=== PATIENT | female | born 1970 | race Caucasian/White ===

== ENCOUNTER 2018-04-20 14:48 | Observation (INO) ==
--- NOTE | 2018-04-20 15:00 | Emergency Department Note ---
Disposition Clinical Impression: Abdominal pain Qualifiers: Abdominal location: epigastric Qualified Code(s): R10.13 - Epigastric pain Acute pancreatitis Qualifiers: Pancreatitis type: unspecified pancreatitis type Acute pancreatitis complication: unspecified Qualified Code(s): K85.90 - Acute pancreatitis without necrosis or infection, unspecified Disposition: Admitted As Inpatient Condition: Good Referrals: Cristal Gomez CNP [Primary Care Provider] - Time of Disposition: 18:51 Abdominal Pain HPI - General Stated Complaint: Stomach/Back Pain Time Seen by Provider: 04/20/18 15:00 Source: patient Mode of arrival: EMS Limitations: no limitations Nursing Notes Reviewed: Yes Vital Signs Reviewed: Yes - History of Present Illness HPI Narrative: 47-year-old obese white female presents emergency department via private vehicle complaining of epigastric abdominal pain. She apparently has a history of H. pylori. She says that she had this one year ago. She was seen earlier this morning at a local urgent care. She apparently had a urinalysis and was started on omeprazole and 3 antibiotics for her potential H. pylori. She says that she went home and took the medicine and her pain increased. She says that her pain initially started 2 days ago, but got worse this morning. She describes it as a burning pain in her epigastrium that radiates to her left upper quadrant. She apparently has vomited as well. Last time she ate was last night and she ate a steak and potatoes. She is uncomfortable presently. - Related Data Home Medications Medication Instructions Recorded Confirmed Amoxicillin 500 mg PO BID 04/20/18 04/20/18 Clarithromycin [Clarithromycin ER] 500 mg PO DAILY 04/20/18 04/20/18 Omeprazole [PriLOSEC] 20 mg PO DAILY 04/20/18 04/20/18 metroNIDAZOLE [Flagyl] 500 mg PO TID 04/20/18 04/20/18 Allergies Allergy/AdvReac Type Severity Reaction Status Date / Time No Known Allergies Allergy Verified 04/20/18 15:03 All systems ED: reviewed and negative except as stated. Constitutional: Denies: fever, chills, weakness, weight change Eyes: Denies: eye pain, eye discharge, vision change ENT ED: Denies: ear pain, throat pain, dental pain, hearing loss, epistaxis, congestion, dysphagia Cardiovascular: Denies: chest pain, palpitations, dyspnea on exertion, edema, syncope Respiratory: Denies: cough, dyspnea, wheezes, hemoptysis, stridor Gastrointestinal: Reports: as per HPI, abdominal pain, nausea, vomiting Genitourinary: Denies: dysuria, frequency, hematuria, discharge Musculoskeletal: Denies: back pain, neck pain, arthralgia, myalgia Integumentary: Denies: rash, abrasion, lesions Neurological: Denies: headache, weakness, numbness, paresthesias, confusion, abnormal gait, vertigo Psychiatric: Denies: anxiety, depression, suicidal thoughts, homicidal thoughts, auditory hallucinations, visual hallucinations Endocrine: Denies: fatigue Hematological/Lymphatic: Denies: easy bleeding, easy bruising Allergic/Immunologic: Denies: facial swelling, urticaria Abdominal Pain PMH - Past Medical History Medical history: Reports: GERD Female Surgical History: Reports: appendectomy, other LAST TRIMMER history: Reports: no LAST TRIMMER history Psychiatric history: Reports: anxiety - Social History Smoking status: Former smoker Alcohol use: Reports: none Drug use: Reports: none Physical Exam - General Limitations: no limitations General appearance: alert, in no apparent distress, obese - Head Head exam: atraumatic, normocephalic, normal inspection - Eye Eye exam: Present: normal appearance - ENT ENT exam: normal exam, normal oropharynx, mucous membranes moist - Neck Neck exam: Present: normal inspection, full ROM, trachea midline - Chest Chest inspection: Present: normal inspection, symmetric chest wall rise - Respiratory Respiratory exam: Present: normal lung sounds bilaterally - Cardiovascular Cardiovascular exam: Present: regular rate, normal rhythm, normal heart sounds - Abdominal Exam Abdominal exam: Present: soft, tenderness, normal bowel sounds. Absent: distention, guarding, rebound, rigidity, organomegaly, mass, pulsatile mass Abdominal tenderness: Present: RUQ, LUQ, epigastrium - Extremities Exam Extremities exam: Present: normal inspection, full ROM. Absent: tenderness, pedal edema - Back Exam Back exam: Present: normal inspection, full ROM. Absent: tenderness, CVA tenderness (R), CVA tenderness (L) - Neurological Exam Neurological exam: Present: alert, oriented X3 - Psychiatric Psychiatric exam: Present: normal affect, normal mood - Skin Skin exam: Present: warm, dry, intact, normal color Course Course Narrative: The patient continued to be uncomfortable throughout her emergency department stay and required additional medicines for nausea and pain. Spoke with Dr. Keen at 1849 and the patient will be observed here in [facility]. Vital Signs Temperature 97.9 F 04/20/18 14:57 Pulse Rate 118 04/20/18 14:57 Respiratory Rate 20 04/20/18 14:57 Blood Pressure 120/83 04/20/18 14:57 O2 Sat by Pulse Oximetry 100 04/20/18 14:57 Temperature 97.9 F 04/20/18 14:57 Pulse Rate 98 04/20/18 17:00 Respiratory Rate 20 04/20/18 17:00 Blood Pressure 119/70 04/20/18 17:00 O2 Sat by Pulse Oximetry 99 04/20/18 17:00 Oxygen Delivery Oxygen Delivery Room Air Abdominal Pain - Lab Data Lab results reviewed: Yes I reviewed the patient's lab results. Result diagrams: 04/20/18 15:25 04/20/18 15:25 Lab Results 04/20/18 04/20/18 04/20/18 Range/Units 15:25 15:25 15:25 WBC 13.5 H (4.3-11.1) K/mcL RBC 4.69 (3.82-4.97) M/mcL Hgb 13.5 (11.5-15.4) g/dL Hct 40.4 (35.3-44.9) % MCV 86.1 (83.0-100.0) fL MCH 28.8 (28.0-33.3) pg MCHC 33.4 (31.6-35.5) g/dL RDW 14.2 (11.5-14.5) % Plt Count 254 (140-400) K/mcL MPV 9.9 (9.4-12.4) fL Immature Gran % 0.4 (0-4) % Seg Neutrophils % 85.0 % Lymphocytes % 9.1 % Monocytes % 5.2 % Eosinophils % 0.1 % Basophils % 0.2 % Neutrophils # 11.5 H (1.6-8.9) K/mcL Lymphocytes # 1.2 (0.6-4.6) K/mcL Monocytes # 0.7 (0.0-1.3) K/mcL Eosinophils # 0.0 (0.0-0.6) K/mcL Basophils # 0.0 (0.0-0.2) K/mcL Sodium 134 L (136-145) mEq/L Potassium 3.7 (3.5-5.1) mEq/L Chloride 103 (98-107) mEq/L Carbon Dioxide 21 L (23-29) mEq/L BUN 10 (6-20) mg/dL Creatinine 1.03 (0.60-1.20) mg/dL Est GFR ( Amer) > 60 (> 60) Est GFR (Non-Af Amer) 58 L (> 60) BUN/Creatinine Ratio 10 (6-26) Glucose 114 H (70-105) mg/dL Calculated Osmolality 278 L (280-300) Lactic Acid 1.9 (0.5-2.2) mmol/L Calcium 9.2 (8.6-10.3) mg/dL Total Bilirubin 0.9 (0.3-1.0) mg/dL AST 23 (13-39) Units/L ALT 18 (7-52) Units/L Alkaline Phosphatase 99 (34-104) Units/L Serum Total Protein 6.8 (6.4-8.9) g/dL Albumin 3.9 (3.5-5.7) g/dL Globulin 2.9 (2.4-3.5) g/dL Albumin/Globulin Ratio 1.3 (1.1-2.2) Lipase 53 (11-82) Units/L Urine Color (Yellow) Urine Clarity (Clear) Urine pH (5.0-8.0) pH Units Ur Specific Protivin (1.010-1.025) Urine Protein (Neg-Trace) mg/dL Urine Glucose (UA) (Normal) mg/dL Urine Ketones (Negative) mg/dL Urine Blood (Negative) Urine Nitrite (Negative) Urine Bilirubin (Negative) Urine Urobilinogen (Normal) mg/dL Ur Leukocyte Esterase (Negative) 04/20/18 Range/Units 18:35 WBC (4.3-11.1) K/mcL RBC (3.82-4.97) M/mcL Hgb (11.5-15.4) g/dL Hct (35.3-44.9) % MCV (83.0-100.0) fL MCH (28.0-33.3) pg MCHC (31.6-35.5) g/dL RDW (11.5-14.5) % Plt Count (140-400) K/mcL MPV (9.4-12.4) fL Immature Gran % (0-4) % Seg Neutrophils % % Lymphocytes % % Monocytes % % Eosinophils % % Basophils % % Neutrophils # (1.6-8.9) K/mcL Lymphocytes # (0.6-4.6) K/mcL Monocytes # (0.0-1.3) K/mcL Eosinophils # (0.0-0.6) K/mcL Basophils # (0.0-0.2) K/mcL Sodium (136-145) mEq/L Potassium (3.5-5.1) mEq/L Chloride (98-107) mEq/L Carbon Dioxide (23-29) mEq/L BUN (6-20) mg/dL Creatinine (0.60-1.20) mg/dL Est GFR ( Amer) (> 60) Est GFR (Non-Af Amer) (> 60) BUN/Creatinine Ratio (6-26) Glucose (70-105) mg/dL Calculated Osmolality (280-300) Lactic Acid (0.5-2.2) mmol/L Calcium (8.6-10.3) mg/dL Total Bilirubin (0.3-1.0) mg/dL AST (13-39) Units/L ALT (7-52) Units/L Alkaline Phosphatase (34-104) Units/L Serum Total Protein (6.4-8.9) g/dL Albumin (3.5-5.7) g/dL Globulin (2.4-3.5) g/dL Albumin/Globulin Ratio (1.1-2.2) Lipase (11-82) Units/L Urine Color Yellow (Yellow) Urine Clarity Clear (Clear) Urine pH 7.0 (5.0-8.0) pH Units Ur Specific Prot[place] 1.010 (1.010-1.025) Urine Protein Negative (Neg-Trace) mg/dL Urine Glucose (UA) Normal (Normal) mg/dL Urine Ketones Trace H (Negative) mg/dL Urine Blood Trace-intact H (Negative) Urine Nitrite Negative (Negative) Urine Bilirubin Negative (Negative) Urine Urobilinogen Normal (Normal) mg/dL Ur Leukocyte Esterase Negative (Negative) - Radiology Data Radiology results reviewed: Yes I reviewed the patient's radiology results. CT scan of the abdomen and pelvis with IV and by mouth contrast: Ill definition of the head and uncinate process of the pancreas with adjacent stranding of fat. In the acute setting this is most suggestive pancreatitis but nonspecific. Follow-up to ensure resolution is recommended D/ / John Rivas MD / John Rivas MD
[2018-04-20] MEDS ORDERED: 0.9 % Sodium Chloride 1,000 ML IVC ONE (15:17)
[2018-04-20] MEDS ORDERED: GI Cocktail 40 ML EACH PO ONE (15:17)
[2018-04-20] MEDS ORDERED: Ondansetron 4 MG/2 ML VIAL IVP ONE ×2 (15:17→18:51)
[2018-04-20] MEDS ORDERED: *HR* Morphine 2 MG/ML SYRINGE IVP ONE ×2 (15:17→16:48)
[2018-04-20 15:34] LABS: Basophils % 0.2 %; Eosinophils % 0.1 %; Hematocrit 40.4 % (35.3-44.9); Hemoglobin 13.5 g/dL (11.5-15.4); Immature Granulocytes % 0.4 % (0-4); Lymphocytes # 1.2 K/mcL (0.6-4.6); Lymphocytes % 9.1 %; Mean Corpuscular HGB Conc 33.4 g/dL (31.6-35.5); Mean Corpuscular Hemoglobin 28.8 pg (28.0-33.3); Mean Corpuscular Volume 86.1 fL (83.0-100.0); Mean Platelet Volume 9.9 fL (9.4-12.4); Monocytes # 0.7 K/mcL (0.0-1.3); Monocytes % 5.2 %; Platelet Count 254 K/mcL (140-400); Red Blood Count 4.69 M/mcL (3.82-4.97); Red Cell Distribution Width 14.2 % (11.5-14.5)
[2018-04-20 15:35] LABS: Neutrophils # 11.5 K/mcL (1.6-8.9)
[2018-04-20] MEDS ORDERED: Isovue-370 500 ML BOTTLE IVP ONE (15:47)
[2018-04-20 15:49] LABS: Alanine Aminotransferase 18 Units/L (7-52); Albumin 3.9 g/dL (3.5-5.7); Albumin/Globulin Ratio 1.3 (1.1-2.2); Alkaline Phosphatase 99 Units/L (34-104); Aspartate Amino Transferase 23 Units/L (13-39); BUN/Creatinine Ratio 10 (6-26); Bilirubin,Total 0.9 mg/dL (0.3-1.0); Blood Urea Nitrogen 10 mg/dL (6-20); Calcium 9.2 mg/dL (8.6-10.3); Carbon Dioxide 21 mEq/L (23-29); Chloride 103 mEq/L (98-107); Globulin 2.9 g/dL (2.4-3.5); Glucose 114 mg/dL (70-105); Lipase 53 Units/L (11-82); Osmolality,Calculated 278 (280-300); Potassium 3.7 mEq/L (3.5-5.1); Sodium 134 mEq/L (136-145); Total Protein 6.8 g/dL (6.4-8.9); eGFR For Non-African Americans 58 (> 60)
[2018-04-20] MEDS ORDERED: *HR* Promethazine 25 MG/ML VIAL IVP ONE ×2 (15:50→16:37)
[2018-04-20] MEDS ORDERED: ISOVUE-370 100 ML INFUS..BTL IVP ONE (16:09)
[2018-04-20] MEDS ORDERED: *HR* LORazepam 2 MG/ML VIAL IVP ONE (16:48)
[2018-04-20 18:41] LABS: Bilirubin,Urine Negative (Negative); Blood,Urine Trace-intact (Negative); Clarity,Urine Clear (Clear); Color,Urine Yellow (Yellow); Glucose,Urine (UA) Normal (Normal); Ketones,Urine Trace mg/dL (Negative); Leukocyte Esterase,Urine Negative (Negative); Nitrite,Urine Negative (Negative); Protein,Urine Negative (Neg-Trace); Urobilinogen,Urine Normal (Normal)
[2018-04-20 18:50] LABS: Squamous Epithelial Cell,Urine Few per lpf (None-Few)
[2018-04-20 18:51] LABS: Bacteria,Urine Few per hpf (None-Few); RBC,Urine 0-3 per hpf (0-3); WBC,Urine 0-3 per hpf (0-3)
[2018-04-20] MEDS ORDERED: *HR* Morphine 2 MG/ML SYRINGE IVP PRN (19:07)
[2018-04-20] MEDS ORDERED: Naloxone 0.4 MG/ML INJ IVP PRN (20:05)
[2018-04-20] MEDS: *HR* Morphine 2 MG/ML SYRINGE IVP PRN (20:42)
[2018-04-20] MEDS: 0.9 % Sodium Chloride 1,000 ML IVC SCH (20:42)
[2018-04-20] MEDS: *HR* Promethazine 25 MG/ML VIAL IVP PRN (22:36)
[2018-04-21] MEDS: *HR* Morphine 2 MG/ML SYRINGE IVP PRN ×5 (00:18→11:45)
[2018-04-21] MEDS: *HR* Promethazine 25 MG/ML VIAL IVP PRN ×2 (05:33→09:53)
[2018-04-21] MEDS: 0.9 % Sodium Chloride 1,000 ML IVC SCH (06:54)
[2018-04-21] MEDS ORDERED: Pantoprazole 40 MG VIAL IVP SCH (09:00)
[2018-04-21] MEDS ORDERED: MORPHINE SUL Oral CONC 10 MG/0.5 ML ORAL.SYG SL SCH (09:00)
--- NOTE | 2018-04-21 09:48 | Internal Med History&Physical ---
Date of Encounter: 04/21/18 Time of Encounter: 09:43 Assessment and Plan (1) Abdominal pain Current visit: Yes Status: Acute Acute epigastrium pain Her lipase is within normal range , CT of the abdomen is showing some fatty tissue around head of pancreas , No evidence of any gall bladder infection or Kidney stones . There is some sub-sternal pain as well . Plan to get and EKG and one troponin since female cardiac issues could present little differently . be little different althoguh I doubt its cardiac . Her vitals a re stable She has hx of Gastric ulcers. About 3 years a go she had EGD which per patient showed mild ulcers for which she didn't complete all treatment She also got H pylori testing and seems like she was started on Triple antib iotics etc Pain seems more like gastric in nature. Add PPI , Keep NPO for now ice chips can be given and EGD would be beneficial . Stool for guaice also ordered Pain management oral Roxanol and prn IV morphine for sever pain , Repeat Lipase etc Continue to observe Qualifiers: Abdominal location: epigastric Qualified Code(s): R10.13 - Epigastric pain (2) Depressed affect Current visit: Yes Status: Chronic hx of depression on celexa . he is seems to be stable and denies any acute suicidal or homicidal ideation etc Internal Medicine - H&P: HPI Admitted From: Emergency Dept Plans for Post Hospital Care: at Home History of present illness: Ms. Kowalski is a 47 year old female who started having epigastrium pain which would raidate to her back few days ago . her pain was more when she would eat no relieve with empty stomach as well . It was associated with some nausea. She went to an urgent care where apparently she had H pylori test done and started on treatment for H pylori . She took one dose and then vomited and decoded to coem to the ED . At the present time she feels that her pain si some what better but she has been taking pain medications . Pain is around 4/10 no nausea vomiting . No radiation still She feels that her pain is also below her chest . She also complains of some SOB however doesn't seems to be in any distress. She denies any fever or chills no cough , no urinary complains or blood per recutm or change in her stool / No weakness in her arms and legs Past Med Surg Social Fam HX - Past Medical History Medical history: GERD Psychiatric history: anxiety - Past Surgical History Surgical History: appendectomy Additional surgical history: Right ovary removal,"ablasion", tonsilectomy - Social History Smoking Status: Former smoker Smokeless Tobacco Status: No Alcohol use: none Drug use: none Internal Medicine - H&P: Meds Amoxicillin 500 mg PO BID 04/20/18 [History] Citalopram [CeleXA] 20 mg PO DAILY 04/20/18 [History] Clarithromycin [Clarithromycin ER] 500 mg PO DAILY 04/20/18 [History] Omeprazole [PriLOSEC] 20 mg PO DAILY 04/20/18 [History] metroNIDAZOLE [Flagyl] 500 mg PO TID 04/20/18 [History] Allergy/AdvReac Type Severity Reaction Status Date / Time No Known Allergies Allergy Verified 04/20/18 15:03 All Systems PM: A 10-system review of systems was performed and is negative for pertinent findings except as documented above in the HPI. - Constitutional Constitutional: no anorexia, no chills, no excessive sweating, no fatigue, no falls, no lethargy, no malaise, no night sweats, no weight gain, no weight loss - EENT Eyes: no blurry vision, no change in vision, no diplopia, no discharge, no irritation, no itchy eyes, no photophobia, no seeing flashes, no spots in vision Nose, mouth and throat: no bleeding gums, no dysphagia, no epistaxis, no mouth pain, no nasal obstruction, no neck mass, no sinus pain, no sinus pressure, no sore throat, no throat swelling - Breasts Breasts: no pain, no nipple discharge - Cardiovascular Cardiovascular ROS IM: chest pain, dyspnea, no claudication, no diaphoresis, no dyspnea on exertion, no edema, no irregular heart rhythm, no lightheadedness, no orthopnea, no palpitations, no paroxysmal nocturnal dyspnea, no syncope, no other Additional comments: chest pain substernal along with epigastrium pain also complains of some SOB - Respiratory Respiratory: dyspnea, no cough, no hemoptysis, no dyspnea on exertion, no snoring, no stridor, no pain on inspiration, no change in phlegm color, no pain with cough - Gastrointestinal Gastrointestinal: abdominal pain, belching, heartburn, nausea, vomiting, no bloating, no change in bowel habits, no change in stool character, no coffee ground emesis, no constipation, no cramping, no diarrhea, no dysphagia, no fecal incontinence, no loose stools, no melena, no odynophagia, no tenesmus - Genitourinary Genitourinary: no difficulty urinating, no difficulty voiding, no dyspareunia, no dysuria, no flank pain, no urinary frequency, no urinary hesitancy, no urinary incontinence - Musculoskeletal Musculoskeletal ROS IM: back pain, no atrophy, no joint swelling, no muscle cramps, no muscle weakness, no myalgias, no stiffness Additional comments: lower back pain - Neurological Neurological ROS: no abnormal gait, no abnormal hearing, no confusion, no convulsions, no disequilibrium, no dizziness, no frequent falls, no loss of vision, no memory loss, no numbness, no tremor(s), no vertigo, no weakness - Hematologic/Lymphatic Hematologic/Lymphatic: no easy bruising - Allergic/Immunologic Allergic/Immunologic: no uticaria, no wheezing - Constitutional Vitals: Temp Pulse Resp BP Pulse Ox 99.7 F H 94 17 109/74 96 04/21/18 06:53 04/21/18 06:53 04/21/18 06:53 04/21/18 06:53 04/21/18 06:53 General appearance: Present: A&O X 3, no acute distress, answers questions appropriately Exam: laying comfortable without any acute distress - Head Head exam: Present: atraumatic - Eye Eye exam: Present: EOMI, normal appearance, PERRL. Absent: scleral icterus, conjuntiva pink Pupils: Present: normal accommodation, PERRL - Neck Neck exam general surgery: Present: full ROM, supple, trachea midline. Absent: tenderness, nuchal rigidity - Respiratory Respiratory exam: Present: chest wall tenderness, CTAB. Absent: prolonged expiratory phase, respiratory distress, rhonchi, stridor, wheezes Additional comments: mild tenderness substernal - Cardiovascular Cardiovascular exam: Present: RRR, +S1, +S2. Absent: gallop, irregular rhythm, JVD, systolic murmur, tachycardia - GI/Abdominal GI/Abdominal exam: Present: soft, tenderness. Absent: diminished bowel sounds, distended, rebound, rigid, no peritoneal signs Additional comments: Epigastric tenderness also some tenderness on the right upper Quadrant no rebound Some pain ion the lower back area mostly on the right hip - Extremities Exam Extremities exam: Present: full ROM, normal inspection. Absent: calf tenderness, mottling, pedal edema, tenderness, radial pulses palpable and symmetrical - Back Exam Back exam: Present: normal inspection, tenderness. Absent: muscle spasm, rash noted Additional comments: mild lower right side - Neurological Exam Neurological exam: Present: CN II-XII intact, oriented X3, reflexes normal, no focal deficits, strengths equal and symetr throughout. Absent: pronater drift, facial droop, speech deficit Internal Med - H&P Results - Labs CBC & Chem 7: 04/20/18 15:25 04/20/18 15:25 Labs: Short CBC 04/20/18 Range/Units 15:25 WBC 13.5 H (4.3-11.1) K/mcL Hgb 13.5 (11.5-15.4) g/dL Hct 40.4 (35.3-44.9) % Plt Count 254 (140-400) K/mcL Neutrophils # 11.5 H (1.6-8.9) K/mcL BMP 04/20/18 15:25 Sodium 134 L Potassium 3.7 Chloride 103 Carbon Dioxide 21 L BUN 10 Creatinine 1.03 Glucose 114 H Calcium 9.2 Liver Function 04/20/18 Range/Units 15:25 Total Bilirubin 0.9 (0.3-1.0) mg/dL AST 23 (13-39) Units/L ALT 18 (7-52) Units/L Alkaline Phosphatase 99 (34-104) Units/L Albumin 3.9 (3.5-5.7) g/dL Urine 04/20/18 Range/Units 18:35 Urine Color Yellow (Yellow) Urine Clarity Clear (Clear) Urine pH 7.0 (5.0-8.0) pH Units Ur Specific [place] 1.010 (1.010-1.025) Urine Protein Negative (Neg-Trace) mg/dL Urine Glucose (UA) Normal (Normal) mg/dL - Impressions ITS Impressions Abdomen/Pelvis CT 04/20/18 15:47 IMPRESSION: Ill definition of the head and uncinate process of the pancreas with adjacent stranding of fat. In the acute setting this is most suggestive pancreatitis but nonspecific. Follow-up to ensure resolution is recommended D/ / John Rivas MD / John Rivas MD Interpreting Provider: John Rivas MD
[2018-04-21] MEDS ORDERED: Nitroglycerin 0.4 MG TAB.SUBL SL PRN (11:13)
--- NOTE | 2018-04-21 11:25 | Discharge Summary ---
- NOTES TO OUTPATIENT PROVIDER Notes to Outpatient Provider: to be determind Orders not resulted at time of discharge: Pending orders 04/21/18 09:41 CBC [Complete Blood Count] [HEME] Routine 04/21/18 09:50 EKG [ECG 12 lead ECG] [ECG] Routine 04/21/18 10:07 Stool guiac [Occult Blood,Stool] [BF] Routine 04/21/18 10:09 H. Pylori Antigen, Fecal Routine H. pylori Urease Culture [RM] Routine noted Date of Encounter: 04/21/18 Time of Encounter: 11:22 - Discharge Diagnosis (1) Abdominal pain Priority: Secondary Status: Acute Comments: She continues to have abdominal pain , CT showed possible pancreatic however lipase was negative followup Lipase has been ordered . On PPI and pain meds . Her troponin came back positive , her epigastrium pain could be due to NSTEMI as she meets the criteria , Transfer to [facility] , cardiology consult and further assessment Qualifiers: Abdominal location: epigastric Qualified Code(s): R10.13 - Epigastric pain (2) Depressed affect Priority: Secondary Status: Chronic Comments: Stable at the present time (3) NSTEMI (non-ST elevated myocardial infarction) Priority: Primary Status: Acute Comments: Her Presentation has been very atypical , pain started bout few days ago , EKG shows Inferior Q waves Positive troponin , Needs further followup at [place] for further cardiac workup . Since Unable to provide heparin drip at [place] will handoff on it for now. There is a choice for using Lovenox but i will holdout on it for ow as cardiology might consider Cardiac Cath soon S/L NTG helped some back pain . Vitals are stable , Patient has been accepted . She will need Stool Guaic. Clinically she is s table at the present time Hospital course: Ms. Kowalski is a 47 year old female Discharge discussed with: patient, family Time spent discussing smoking cessation with patient: more than 10 minutes - Time Spent with Patient Total time spent providing and/or coordinating discharge services: - Discharge Medications Home Medications: Amoxicillin 500 mg PO BID 04/20/18 [History] Citalopram [CeleXA] 20 mg PO DAILY 04/20/18 [History] Clarithromycin [Clarithromycin ER] 500 mg PO DAILY 04/20/18 [History] Omeprazole [PriLOSEC] 20 mg PO DAILY 04/20/18 [History] metroNIDAZOLE [Flagyl] 500 mg PO TID 04/20/18 [History] Allergies/Adverse Reactions: Allergy/AdvReac Type Severity Reaction Status Date / Time No Known Allergies Allergy Verified 04/20/18 15:03 Date of admission: 04/20/18 19:09 Primary care physician: Cristal Gomez CNP Discharging clinician: Varinder Keen Anticipated date of discharge: 04/21/18 (transfer to [facility] ) - Constitutional Vitals: Temp Pulse Resp BP Pulse Ox 99.7 F H 94 17 109/74 96 04/21/18 06:53 04/21/18 06:53 04/21/18 06:53 04/21/18 06:53 04/21/18 06:53 General appearance: Present: A&O X 3, no acute distress, answers questions appropriately - Head Head exam: Present: atraumatic - Eye Eye exam: Present: EOMI, PERRL. Absent: conjuntiva pink, sclera anicteric - Neck Neck exam general surgery: Present: supple. Absent: nuchal rigidity, thyromegaly - Respiratory Respiratory exam: Present: CTAB. Absent: respiratory distress, rhonchi, stridor - Cardiovascular Cardiovascular exam: Present: RRR, +S1, +S2. Absent: irregular rhythm, JVD Additional comments: substernal pain as before - GI/Abdominal GI/Abdominal exam: Present: soft, tenderness. Absent: distended, firm, rebound, rigid Additional comments: epigastric pain on palpation, some pain on right upper quardent no rebound noted BS ++ there is also similar sternal pain as well mid sternal area - Extremities Exam Extremities exam: Absent: pedal edema, tenderness - Neurological Exam Neurological exam: Present: CN II-XII intact, oriented X3, strengths equal and symetr throughout. Absent: reflexes normal, no focal deficits, pronater drift, facial droop - Patient Status Disposition: Transfer Critical Access Hosp Condition: Fair Functional capacity at discharge: bed bound Overall status at discharge: patient is not back to baseline - Discharge Instructions Follow Up With: Cristal Gomez CNP [Primary Care Provider] - Forms: ED Satisfaction Letter, Work/School Release - Diet and Activity Activity: other (bed rest for now )
[2018-04-21 11:45] VITALS: BP 113/73
--- NOTE | 2018-04-23 17:00 | Electrocardiograph Report ---
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
== END 2018-04-21 12:40 | disposition critical access hospital (66) ==
LOC: INPGRE 14:48 → EMEROOGRE 14:48 → INPGRE 19:42
PROVIDERS: ADMIT Internal Medicine; ATTEND Internal Medicine